=== PATIENT | female | born 1995 | race Caucasian/White ===

== ENCOUNTER 2017-07-02 02:38 | Emergency (ER) | payer MEDICAID ==
[2017-07-02] MEDS ORDERED: Ondansetron HCl/PF 4 MG/2 ML Vial ONE (03:24)
[2017-07-02 03:45] LABS: #Eosinphils 0.1 thou/uL (0.0-0.7); #Lymphocytes 0.5 thou/uL (1.20-3.40); #Monocytes 0.7 thou/uL (0.11-0.59); #Neutrophils 10.7 thou/uL (1.40-6.50); %Eosinophils 0.6 % (0.0-10.0); %Lymphocytes 4.4 % (21.0-51.0); %Monocytes 5.5 % (0.0-10.0); %Neutrophils 89.6 % (42.0-75.0); Hemoglobin 12.9 g/dL (12.0-16.0); Mean Corpuscular HGB CONC 33.5 g/dL (32.0-36.0); Mean Corpuscular Hemoglobin 29.6 pg (27.0-31.0); Mean Corpuscular Volume 88.2 fl (81.0-99.0); Mean Platelet Volume 8.5 fL (7.4-10.4); Platelet Count 226 thou/uL (130-400); RBC Distribution Width 11.9 % (11.5-14.5); Red Blood Cell (RBC) Count 4.36 mill/uL (4.20-5.40); White Blood Cell (WBC) Count 11.9 thou/uL (4.8-10.8)
[2017-07-02 04:27] LABS: Bilirubin Small (Negative); Blood, Urine Negative (Negative); Clarity TURBID (Clear); Glucose, Urine (Dipstick) Negative (Negative); Leukocyte Small (Negative); Nitrite Negative (Negative); Protein, Urine (Dipstick) Trace mg/dL (Neg-Trace); Specific Gravity, Urine 1.028 (1.002-1.036); Urobilinogen 0.2 mg/dL (0.2-1.0)
[2017-07-02 04:30] LABS: Bacteria/HPF 2+ HPF (None Seen); Hyaline Casts/LPF 7-10 HYALINE CAST LPF (0-3 Hyaline); Squamous Epithelial 21-50 HPF (0-3)
--- NOTE | 2017-07-02 08:31 | ULT ---
PRELIMINARY REPORT/[facility]/EMERGENCY AFTER HOURS PROCEDURE: EXAM: US First Trimester, Transabdominal US Duplex Arterial/Venous of the Pelvis, Complete CLINICAL HISTORY: 21 years old, female; Pain; Other: N/v, cramping, no bleeding; Gestational age or lmp: 8wks; TECHNIQUE: Real-time transabdominal obstetrical ultrasound of the maternal pelvis and a first trimester pregnanc y with image documentation. Real-time duplex ultrasound scan of the arterial and venous flow of the pelvis with color Doppler nishant w and spectral waveform analysis was also performed for evaluation of pelvic and ovarian blood flow a nd torsion. COMPARISON: No relevant prior studies available. FINDINGS: Gestation: Single, living intrauterine gestation. heart rate 168 beats per minute. CRL 1.93cm, 8w3d. Placenta/amniotic fluid: Cannot be adequately evaluated due to the early gestational age. Uterus/cervix: See above. No myometrial mass. Ovaries: No acute findings. No mass. Normal blood flow. No evidence of torsion. Free fluid: No free fluid. IMPRESSION: Single viable intrauterine . No acute findings. Thank you for allowing us to participate in the care of your patient. Dictated and Authenticated by: Chad Bergeron MD 07/02/2017 4:36 AM Central Time ([place] & [place]) FINAL REPORT EMERGENCY AFTER HOURS OB ULTRASOUND: Date: 07/02/17 HISTORY: Nausea, vomiting, and cramping in patient with positive . FINDINGS: The uterus measures 11.2 cm x 6.2 cm x 7.8 cm. There is evidence of a single intrauterine gestation w ith pole visualized. [place]-rump length measures 1.93 cm, consistent with gestational age by ult rasound of 8 weeks and 3 days. Cardiac Doppler does demonstrate heart tones with a heart rate of 168 beats/minute. The ovaries demonstrate grossly normal sonographic appearance. Doppler evaluation with spectral reji sis and color flow evaluation of each ovary demonstrates venous and arterial flow. No free fluid is seen in the cul-de-sac. IMPRESSION: Single intrauterine gestation with heart tones documented. Gestational age by measurement of cr own-rump length is 8 weeks and 3 days, which does correlate with gestational age by last menstrual pe riod of 8 weeks and 2 days. Findings are in agreement with the preliminary report by Sal. POS: [facility]
== END 2017-07-02 05:32 | disposition home or self-care (01) ==
LOC: ERS 02:38
DX: O23.41 Unspecified infection of urinary tract in pregnancy, first trimester (principal); O21.9 Vomiting of pregnancy, unspecified; Z3A.08 8 weeks gestation of pregnancy
CPT/HCPCS: 76856; 81003; 81015; 84702; 85025; 86900; 86901; 87086; 93976; 96361; 96374; 96375; J0696; J2405

== ENCOUNTER 2017-09-11 20:00 | Emergency (ER) | payer MEDICAID, OTHER ==
[2017-09-11 21:07] LABS: #Basophils 0.1 thou/uL (0.0-0.2); #Eosinphils 0.1 thou/uL (0.0-0.7); #Lymphocytes 1.6 thou/uL (1.20-3.40); #Monocytes 0.7 thou/uL (0.11-0.59); #Neutrophils 5.7 thou/uL (1.40-6.50); %Basophils 1.2 % (0.0-1.0); %Lymphocytes 19.4 % (21.0-51.0); %Neutrophils 69.4 % (42.0-75.0); Hemoglobin 12.5 g/dL (12.0-16.0); Mean Corpuscular HGB CONC 34.7 g/dL (32.0-36.0); Mean Corpuscular Hemoglobin 30.4 pg (27.0-31.0); Mean Corpuscular Volume 87.5 fl (81.0-99.0); Mean Platelet Volume 7.6 fL (7.4-10.4); Platelet Count 249 thou/uL (130-400); RBC Distribution Width 11.9 % (11.5-14.5); Red Blood Cell (RBC) Count 4.13 mill/uL (4.20-5.40); White Blood Cell (WBC) Count 8.3 thou/uL (4.8-10.8)
[2017-09-11 21:28] LABS: Bilirubin Negative (Negative); Blood, Urine Negative (Negative); Clarity CLOUDY (Clear); Glucose, Urine (Dipstick) Negative (Negative); Leukocyte Small (Negative); Nitrite Negative (Negative); Protein, Urine (Dipstick) Negative (Neg-Trace); Specific Gravity, Urine 1.016 (1.002-1.036)
[2017-09-11 21:29] LABS: ALT (SGPT) 28 U/L (8-55); AST (SGOT) 23 U/L (5-34); Albumin 3.7 g/dL (3.5-5.0); Alkaline Phosphatase 117 U/L (40-150); Anion Gap 9 mmol/L (10-20); BUN (Urea Nitrogen) 9 mg/dL (7.0-18.7); Bilirubin, Total 1.1 mg/dL (0.2-1.2); Calc. Creatinine Clearance 0 mL/min (70-130); Calcium 9.5 mg/dL (7.8-10.44); Carbon Dioxide 27 mmol/L (22-29); Chloride 103 mmol/L (98-107); Estimated GFR-MDRD Greater than 90; Globulin 3.6 g/dL (2.4-3.5); Glucose 83 mg/dL (70-105); Potassium 3.5 mmol/L (3.5-5.1); Protein, Total 7.3 g/dL (6.0-8.3); Sodium 135 mmol/L (136-145)
[2017-09-11 21:30] LABS: Bacteria/HPF 1+ HPF (None Seen); Hyaline Casts/LPF 4-6 HYALINE CAST LPF (0-3 Hyaline); Pathc Cast-AUWi Flag 1.16 (0-2.49); RBC/HPF 0-3 HPF (0-3)
[2017-09-11] MEDS ORDERED: diphenhydrAMINE 50 MG/ML VIAL ONE (22:09)
[2017-09-11] MEDS ORDERED: Metoclopramide HCl 10 MG/2 ML VIAL ONE (22:09)
--- NOTE | 2017-09-11 22:37 | CT ---
CT OF THE BRAIN WITHOUT CONTRAST 09/11/17 COMPARISON: None. HISTORY: Headache and seeing spots in both eyes. TECHNIQUE: Multiple contiguous axial images were obtained in a CT of the brain without contrast. FINDINGS: The brain is normal in morphology and attenuation without focal lesions or confluent areas of infarct ion. There is no evidence of hydrocephalus, intracranial hemorrhage or extra-axial fluid collection. The calvarium and overlying soft tissues are unremarkable. The visualized paranasal sinuses and masto id air cells are well aerated. IMPRESSION: No evidence of acute intracranial abnormality. POS: [facility]
== END 2017-09-11 23:09 | disposition home or self-care (01) ==
LOC: ERS 20:00
DX: O99.89 Other specified diseases and conditions complicating pregnancy, childbirth and the puerperium (principal); R51 Headache; Z3A.18 18 weeks gestation of pregnancy
CPT/HCPCS: 70450; 80053; 81003; 81015; 85025; 96365; 96375; J1200; J2765

== ENCOUNTER 2018-01-13 20:00 | Inpatient (IN) | payer OTHER ==
[2018-01-13] MEDS ORDERED: Butorphanol Tartrate 1 MG/ML VIAL SLOW IVP PRN (21:06)
[2018-01-13] MEDS ORDERED: Ondansetron HCl/PF 4 MG/2 ML Vial IVP PRN (21:06)
[2018-01-13] MEDS ORDERED: NS / Oxytocin 40 units/1000ml 1,000 ML IV PRN (21:06)
[2018-01-13] MEDS ORDERED: Lidocaine 1% (PF) 30 ML VIAL SC PRN (21:06)
[2018-01-13] MEDS ORDERED: HYDROcodone/Acetaminophen 5/325 mg Tablet PO PRN ×2 (21:06)
[2018-01-13] MEDS ORDERED: Promethazine HCl 25 MG/ML VIAL IM PRN (21:06)
[2018-01-13] MEDS ORDERED: Ibuprofen 800 MG TAB PO PRN (21:06)
[2018-01-13] MEDS ORDERED: Lactated Ringer's 1,000 ML IV SCH (21:30)
[2018-01-13 21:50] VITALS: BMI 41.3
[2018-01-13] MEDS: Lactated Ringer's 1,000 ML IV SCH (22:07)
[2018-01-13 22:20] LABS: Hemoglobin 11.8 g/dL (12.0-16.0); Mean Corpuscular HGB CONC 33.4 g/dL (32.0-36.0); Mean Corpuscular Hemoglobin 29.1 pg (27.0-31.0); Mean Corpuscular Volume 87.4 fL (78.0-98.0); Mean Platelet Volume 10.5 fL (7.4-10.4); Platelet Count 172 thou/uL (130-400); RBC Distribution Width 12.7 % (11.5-14.5); Red Blood Cell (RBC) Count 4.06 mill/uL (4.20-5.40); White Blood Cell (WBC) Count 6.4 thou/uL (4.8-10.8)
[2018-01-13] MEDS: Misoprostol 100 MCG TAB VAG SCH (22:31)
[2018-01-13 22:57] LABS: Syphilis Antibody Nonreactive (Nonreactive); Syphilis Antibody Index 0.06 S/CO (<1.00 Non-Reactive)
[2018-01-13] MEDS ORDERED: Magnesium Sulfate 20 gm/500 ml 20 GM/500 ML BAG ONE (23:01)
[2018-01-13] MEDS ORDERED: Labetalol HCl 100 MG/20 ML VIAL SLOW IVP PRN (23:02)
[2018-01-13] MEDS ORDERED: Calcium Gluc 4.6 MEQ/10 ML (100 MG/ML) IV PRN (23:03)
[2018-01-13] MEDS ORDERED: Magnesium Sulfate 20 gm/500 ml 4 GM/100 ML BAG IVPB ONE (23:03)
[2018-01-13 23:16] LABS: ALT (SGPT) 94 U/L (8-55); AST (SGOT) 73 U/L (5-34); Albumin 3.3 g/dL (3.5-5.0); Alkaline Phosphatase 373 U/L (40-150); Anion Gap 17 mmol/L (10-20); BUN (Urea Nitrogen) 7 mg/dL (7.0-18.7); Bilirubin, Total 1.4 mg/dL (0.2-1.2); Calc. Creatinine Clearance 248 mL/min (70-130); Calcium 8.9 mg/dL (7.8-10.44); Carbon Dioxide 17 mmol/L (22-29); Chloride 103 mmol/L (98-107); Estimated GFR-MDRD Greater than 90; Globulin 3.8 g/dL (2.4-3.5); Glucose 79 mg/dL (70-105); Potassium 4.3 mmol/L (3.5-5.1); Protein, Total 7.1 g/dL (6.0-8.3); Sodium 133 mmol/L (136-145)
[2018-01-13 23:34] LABS: HBSAg Index 0.18 S/CO (0-0.99); Hep B Surf Ag Non-Reactive S/CO (NonReactive)
[2018-01-14 00:43] LABS: Creatinine, Urine 38.43 mg/dL (47-110); Protein, Urine Random Quant Less than 10 mg/dL (1-14)
[2018-01-14] MEDS ORDERED: Labetalol HCl 100 MG/20 ML VIAL SLOW IVP PRN ×2 (01:31→01:32)
[2018-01-14] MEDS: Lactated Ringer's 1,000 ML IV SCH (05:22)
[2018-01-14] MEDS: Terbutaline Sulfate 1 MG/ML VIAL SC SCH ×2 (05:58→11:18)
[2018-01-14] MEDS: Magnesium Sulfate 20 gm/500 ml 20 GM/500 ML BAG IVPB PRN ×2 (07:07→17:10)
[2018-01-14] MEDS: Misoprostol 100 MCG TAB VAG SCH ×4 (07:34→18:39)
[2018-01-14] MEDS: NS w/ Oxytocin 10 units 500 ML IV SCH (07:34)
[2018-01-14] MEDS ORDERED: Bicitra 30 ML UDCUP PO SCH (08:15)
[2018-01-14] MEDS ORDERED: CEFAZOLIN/Water 2 GM/20 ML SYRINGE SLOW IVP SCH (08:15)
[2018-01-14] MEDS ORDERED: Bicitra 30 ML UDCUP ONE (08:26)
[2018-01-14] MEDS ORDERED: Morphine PF 1 MG/ML SYR ONE (08:54)
[2018-01-14] MEDS ORDERED: Ondansetron HCl/PF 4 MG/2 ML Vial ONE ×2 (08:55→12:39)
[2018-01-14] MEDS ORDERED: PHENYLEPHRINE-NS 100 MCG/ML 10 ML SYRINGE ONE ×2 (08:55→12:39)
[2018-01-14] MEDS ORDERED: Bupivacaine 0.75% W/DEXTROSE 8.25% 2 ML AMP ONE (08:55)
[2018-01-14] MEDS ORDERED: Lidocaine 1% PF 5 ML VIAL ONE (08:55)
[2018-01-14] MEDS ORDERED: Oxytocin 10 UNITS/ML VIAL ONE ×2 (08:55→09:33)
[2018-01-14] MEDS ORDERED: Ketorolac Tromethamine 30 MG/ML VIAL ONE ×2 (08:55→12:39)
[2018-01-14] MEDS ORDERED: ePHEDrine/0.9% NaCl/PF SYRINGE 50 mg/10 ml ONE ×2 (08:55→12:39)
[2018-01-14] MEDS ORDERED: Naloxone HCl 0.4 mg/ml Vial IVP PRN ×2 (09:51)
[2018-01-14] MEDS ORDERED: Meperidine HCl/PF 25 MG/ML VIAL SLOW IVP PRN (09:51)
[2018-01-14] MEDS ORDERED: Naloxone HCl 0.4 mg/ml Vial IV PRN (09:51)
[2018-01-14] MEDS ORDERED: HYDROmorphone 2 MG/ML VIAL SLOW IVP PRN (09:51)
[2018-01-14] MEDS ORDERED: Promethazine HCl 25 MG SUPP PR PRN (09:51)
[2018-01-14] MEDS ORDERED: Ondansetron HCl/PF 4 MG/2 ML Vial IVP PRN ×3 (09:51→10:01)
[2018-01-14] MEDS ORDERED: Promethazine HCl 25 MG/ML VIAL IM PRN ×2 (09:51→10:01)
[2018-01-14] MEDS ORDERED: Eucerin (Mineral Oil/Petrolatum,White) 30 gm Jar TOP PRN (09:51)
[2018-01-14] MEDS ORDERED: diphenhydrAMINE 50 MG/ML VIAL IVP PRN (09:51)
[2018-01-14] MEDS ORDERED: Ketorolac Tromethamine 30 MG/ML VIAL IVP SCH (10:00)
[2018-01-14] MEDS ORDERED: Communication Order-Pharmacy FS SCH (10:00)
[2018-01-14] MEDS ORDERED: Zolpidem Tartrate 5 MG TAB PO PRN (10:01)
[2018-01-14] MEDS ORDERED: Adacel (T-DAP) 0.5 ML VIAL IM ONE (10:01)
[2018-01-14] MEDS ORDERED: HYDROcodone/Acetaminophen 5/325 mg Tablet PO PRN ×2 (10:01)
[2018-01-14] MEDS ORDERED: Simethicone Chewable 80 MG TAB PO PRN (10:01)
[2018-01-14] MEDS ORDERED: Lanolin Ointment 7 GM TUBE TOP PRN (10:01)
[2018-01-14] MEDS ORDERED: Calcium Gluconate 4.6 MEQ in Sodium Chloride 0.9% 100 ML IVPB PRN (10:01)
[2018-01-14] MEDS ORDERED: diphenhydrAMINE 25 MG CAP PO PRN (10:01)
[2018-01-14] MEDS ORDERED: Meperidine HCl/PF 25 MG/ML VIAL IM PRN (10:01)
[2018-01-14] MEDS ORDERED: Lactated Ringer's 1,000 ML IV SCH (10:15)
[2018-01-14] MEDS ORDERED: NS / Oxytocin 40 units/1000ml 1,000 ML IV SCH (10:15)
--- NOTE | 2018-01-14 10:20 | OP ---
DATE OF PROCEDURE: 01/14/2018 PREOPERATIVE DIAGNOSES: A 36 weeks gestation, severe cholestasis of , severe preeclampsia a nd nonreassuring heart rate tracing remote from delivery. POSTOPERATIVE DIAGNOSES: A 36 weeks gestation, severe cholestasis of , severe preeclampsia and nonreassuring heart rate tracing remote from delivery. PROCEDURE: Primary low transverse section without extension. SURGEON: Wm Mosher M.D. KNAPSACK SPRAYER: Dr. Mckinney, PGY-2. ANESTHESIA: Subarachnoid block. DVT PROPHYLAXIS: SCDs. MEDICATIONS: Two grams Ancef preincision. OPERATIVE FINDINGS: 1. Vigorous male , cephalic presentation, clear fluid 5 and 9 Apgars, weight pending, to [facility]. 2. Normal appearing uterus, tubes, and ovaries bilaterally. 3. Hemostasis with clear urine, counts correct at the end of the procedure. DISPOSITION: Recovery room and LICU in good condition. DESCRIPTION OF OPERATIVE PROCEDURE: After obtaining proper informed consent, the patient was taken t o the operating room where a subarachnoid block was achieved without difficulty. The patient was pre pped and draped in the usual manner for section and a Pfannenstiel incision carried through the skin down the fascia, midline incised sharply and extended superolaterally with curved Ledezma sciss ors. Rectus dissected off sharply superiorly and inferiorly, divided in the midline, peritoneum ente red bluntly, taking care to avoid trauma to the line viscera. Rajiv O retractor placed inside. Ves icouterine peritoneal fold identified and low transverse hysterotomy made just above this level. Ent ry was accomplished and clear fluid was noted. Incision was extended superior and laterally with fin aspen fractionization. Infant's head elevated to hysterotomy, the rest of the infant delivered. Cord clamped, cut, handed off to Dr. Haile in attendance. Usual cord blood sample obtained after obtaini ng a cord blood gas. Placenta was removed manually and sent for pathologic analysis. Hysterotomy wa s noted be without extension and closed using a running locking #1 Monocryl single layer suture. Goo d hemostasis was noted after closure. Gutters were irrigated out bilaterally. Reinspection of hyste rotomy revealed it to be dry. The Rajiv 0 retractor was removed. Rectus inspected and noted be dry . Fascia reapproximated in running continuous 0 PDS suture x2. Subcutaneous tissue irrigated and re ndered hemostatic with Bovie cautery, reapproximated using a 2-0 plain gut. Skin reapproximated usin g 4-0 Monocryl subcuticular and Dermabond. The patient was taken to recovery room in good condition. Cord blood gas pending. Placental pathology pending. QBL pending. EBL was 850 mL.
[2018-01-14 11:27] LABS: Actual Bicarbonate (HCO3a) 25.9 mEq/L (22-28); Analyzer IN Cardio OR; Base Excess (BEa) -4.1 mEq/L (-2.0 to +3.0)
[2018-01-14] MEDS ORDERED: Morphine 4 MG/ML VIAL ONE (12:48)
[2018-01-14] MEDS: Ketorolac Tromethamine 30 MG/ML VIAL IVP PRN (18:16)
[2018-01-14 19:58] LABS: ALT (SGPT) 113 U/L (8-55); AST (SGOT) 78 U/L (5-34); Albumin 2.8 g/dL (3.5-5.0); Alkaline Phosphatase 315 U/L (40-150); Bilirubin, Direct 0.6 mg/dL (0.1-0.3); Bilirubin, Total 1.8 mg/dL (0.2-1.2); Magnesium 5.5 mg/dL (1.6-2.6); Protein, Total 6.1 g/dL (6.0-8.3)
[2018-01-15] MEDS: Docusate Calcium (SURFAK) 240 MG CAP PO SCH ×3 (01:00→22:09)
[2018-01-15] MEDS: NS w/ Oxytocin 10 units 500 ML IV SCH (01:00)
[2018-01-15] MEDS: Magnesium Sulfate 20 gm/500 ml 20 GM/500 ML BAG IVPB PRN (03:19)
[2018-01-15] MEDS: Ketorolac Tromethamine 30 MG/ML VIAL IVP PRN (03:20)
[2018-01-15 06:43] LABS: #Lymphocytes 1.2 thou/uL (1.20-3.40); #Monocytes 0.7 thou/uL (0.11-0.59); #Neutrophils 6.6 thou/uL (1.40-6.50); %Basophils 0.2 % (0.0-1.0); %Eosinophils 0.4 % (0.0-10.0); %Lymphocytes 13.7 % (21.0-51.0); %Monocytes 8.3 % (0.0-10.0); %Neutrophils 77.4 % (42.0-75.0); Hemoglobin 9.3 g/dL (12.0-16.0); Mean Corpuscular HGB CONC 33.3 g/dL (32.0-36.0); Mean Corpuscular Hemoglobin 29.6 pg (27.0-31.0); Mean Corpuscular Volume 88.9 fL (78.0-98.0); Mean Platelet Volume 9.8 fL (7.4-10.4); Platelet Count 179 thou/uL (130-400); RBC Distribution Width 13.2 % (11.5-14.5); Red Blood Cell (RBC) Count 3.16 mill/uL (4.20-5.40); White Blood Cell (WBC) Count 8.5 thou/uL (4.8-10.8)
[2018-01-15 07:08] LABS: ALT (SGPT) 113 U/L (8-55); AST (SGOT) 83 U/L (5-34); Albumin 2.5 g/dL (3.5-5.0); Alkaline Phosphatase 276 U/L (40-150); Anion Gap 12 mmol/L (10-20); BUN (Urea Nitrogen) 8 mg/dL (7.0-18.7); Bilirubin, Total 1.6 mg/dL (0.2-1.2); Calc. Creatinine Clearance 244 mL/min (70-130); Calcium 6.9 mg/dL (7.8-10.44); Carbon Dioxide 21 mmol/L (22-29); Chloride 102 mmol/L (98-107); Estimated GFR-MDRD Greater than 90; Globulin 3.3 g/dL (2.4-3.5); Glucose 73 mg/dL (70-105); Potassium 4.1 mmol/L (3.5-5.1); Protein, Total 5.8 g/dL (6.0-8.3); Sodium 131 mmol/L (136-145)
--- NOTE | 2018-01-15 07:23 | PRG ---
DATE OF SERVICE: 01/15/2018 TIME OF SERVICE: 0630 The patient is resting comfortably. She is now approximately 20 hours status post primary s ection for nonreassuring heart rate tracing and cholestasis of with severe preeclampt ic features. The patient has been doing well. Urine output has increased to approximately 50-80 mL an hour. Mag levels were nontoxic. Laboratory indices were stable yesterday. A.m. labs are pending . The patient has no headache. Blood pressures have been less than 140s/90 all night long. PHYSICAL EXAMINATION: LUNGS: Clear to auscultation bilaterally. HEART: Regular rate and rhythm. ABDOMEN: Soft, nontender, without rebound or guarding. Bowel sounds positive. Incision intact and dry. EXTREMITIES: Without clubbing, cyanosis or edema. IMPRESSION: Cholestasis of with severe pre-eclampsia, resolving. PLAN: Discontinue magnesium, transfer to the floor. Initiate routine post-C section care and follow up repeat LFTs and CBC.
[2018-01-15] MEDS ORDERED: Prenatal Vitamin 1 TAB PO SCH ×3 (09:00→10:00)
[2018-01-15] MEDS ORDERED: Ondansetron HCl/PF 4 MG/2 ML Vial IVP PRN (09:28)
[2018-01-15] MEDS ORDERED: HYDROcodone/Acetaminophen 5/325 mg Tablet PO PRN (09:28)
[2018-01-15] MEDS ORDERED: Zolpidem Tartrate 5 MG TAB PO PRN (09:28)
[2018-01-15] MEDS ORDERED: Promethazine HCl 25 MG/ML VIAL IM PRN (09:28)
[2018-01-15] MEDS ORDERED: Adacel (T-DAP) 0.5 ML VIAL IM ONE (09:28)
[2018-01-15] MEDS ORDERED: Lactated Ringer's 1,000 ML IV SCH (09:28)
[2018-01-15] MEDS ORDERED: diphenhydrAMINE 25 MG CAP PO PRN (09:28)
[2018-01-15] MEDS ORDERED: Simethicone Chewable 80 MG TAB PO PRN (09:28)
[2018-01-15] MEDS ORDERED: Meperidine HCl/PF 25 MG/ML VIAL IM PRN (09:28)
[2018-01-15] MEDS ORDERED: Docusate Calcium (SURFAK) 240 MG CAP PO SCH ×2 (09:28→09:45)
[2018-01-15] MEDS ORDERED: Lanolin Ointment 7 GM TUBE TOP PRN (09:28)
[2018-01-15] MEDS: Ibuprofen 800 MG TAB PO SCH ×2 (09:56→17:25)
[2018-01-15] MEDS: Misoprostol 100 MCG TAB VAG SCH (10:13)
[2018-01-15] MEDS: HYDROcodone/Acetaminophen 5/325 mg Tablet PO PRN ×3 (13:09→22:09)
[2018-01-16] MEDS: Ibuprofen 800 MG TAB PO SCH ×3 (00:57→13:35)
[2018-01-16] MEDS: HYDROcodone/Acetaminophen 5/325 mg Tablet PO PRN ×2 (07:29→11:56)
[2018-01-16] MEDS: Docusate Calcium (SURFAK) 240 MG CAP PO SCH (07:30)
[2018-01-16] MEDS ORDERED: Prenatal Vitamin 1 TAB PO SCH (09:00)
--- NOTE | 2018-01-16 09:15 | PDOC.PP ---
Post Progress Note Post Day #: 2 PO intake tolerated: yes Flatus: yes Ambulation: yes Vital Signs (12 hours) Temp Pulse Resp BP Pulse Ox 01/16/18 07:56 98.8 F 89 20 130/76 96 01/16/18 00:00 98.5 F 95 18 132/69 Weight Weight 241 lb - Physical Examination General: NAD Cardiovascular: no m/r/g, RRR Respiratory: clear to auscultation bilaterally, non-labored breathing Abdominal: + bowel sounds, lochia, no distention, appropriately TTP Extremities: negative homans (B) Skin: CS incision dry & intact, no rash Neurological: no gross focal deficits Result Diagrams: 01/15/18 06:28 01/15/18 06:28 Additional Labs: Post Labs Blood Type B POSITIVE 01/13/18 22:12 Hep Bs Antigen Non-Reactive S/CO (NonReactive) 01/13/18 22:11 - Assessment/Plan doing well dc home 1500, repeat lft in 2 wk
[2018-01-16 11:44] VITALS: BP 127/64; TEMP 97.8
== END 2018-01-16 15:10 | disposition home or self-care (01) | DRG 786 ==
LOC: L&D 20:58 → 3SW 01-15 09:25
PROVIDERS: ADMIT Obstetrics & Gynecology; ATTEND Obstetrics & Gynecology
PROC: 10D00Z1 Extraction of Products of Conception, Low, Open Approach (ICD-10-PCS; principal; 2018-01-14)
DX: O26.62 Liver and biliary tract disorders in childbirth (principal); K83.1 Obstruction of bile duct; O76 Abnormality in fetal heart rate and rhythm complicating labor and delivery; O14.14 Severe pre-eclampsia complicating childbirth; Z3A.36 36 weeks gestation of pregnancy; Z37.0 Single live birth
CPT/HCPCS: 36415; 36416; 51702; 80053; 80076; 82570; 82805; 83735; 84156; 85025; 85027; 86780; 86850; 86900; 86901; 87340; 88307; J1885; J2001; J2270; J2274; J2405; J2590; J3105; J3475; J3490

== ENCOUNTER 2018-01-17 19:35 | Emergency (ER) | payer OTHER, SELFPAY ==
[2018-01-17 20:13] LABS: #Eosinphils 0.1 thou/uL (0.0-0.7); #Lymphocytes 1.3 thou/uL (1.20-3.40); #Monocytes 0.7 thou/uL (0.11-0.59); #Neutrophils 5.1 thou/uL (1.40-6.50); %Basophils 0.3 % (0.0-1.0); %Lymphocytes 18.2 % (21.0-51.0); %Neutrophils 71.4 % (42.0-75.0); Hemoglobin 10.3 g/dL (12.0-16.0); Mean Corpuscular HGB CONC 33.3 g/dL (32.0-36.0); Mean Platelet Volume 8.6 fL (7.4-10.4); Platelet Count 252 thou/uL (130-400); RBC Distribution Width 13.1 % (11.5-14.5); Red Blood Cell (RBC) Count 3.45 mill/uL (4.20-5.40); White Blood Cell (WBC) Count 7.2 thou/uL (4.8-10.8)
[2018-01-17 20:37] LABS: ALT (SGPT) 139 U/L (8-55); AST (SGOT) 73 U/L (5-34); Albumin 3.3 g/dL (3.5-5.0); Alkaline Phosphatase 281 U/L (40-150); Anion Gap 12 mmol/L (10-20); BUN (Urea Nitrogen) 10 mg/dL (7.0-18.7); Bilirubin, Total 1.5 mg/dL (0.2-1.2); Calc. Creatinine Clearance 0 mL/min (70-130); Carbon Dioxide 24 mmol/L (22-29); Chloride 105 mmol/L (98-107); Estimated GFR-MDRD Greater than 90; Globulin 3.8 g/dL (2.4-3.5); Glucose 77 mg/dL (70-105); Potassium 4.1 mmol/L (3.5-5.1); Protein, Total 7.1 g/dL (6.0-8.3); Sodium 137 mmol/L (136-145)
== END 2018-01-17 20:37 | disposition home or self-care (01) ==
LOC: ERS 19:35
DX: O99.89 Other specified diseases and conditions complicating pregnancy, childbirth and the puerperium (principal); Z48.817 Encounter for surgical aftercare following surgery on the skin and subcutaneous tissue
CPT/HCPCS: 36415; 80053; 85025; 99283